=== PATIENT | male | born 1980 | race Caucasian/White ===

== ENCOUNTER 2018-01-07 16:45 | Emergency (ER) | payer OTHER ==
[~2018-01-07] VITALS: Ht 172.7 cm; Wt 70.3 kg
[2018-01-07 16:52] VITALS: Ht 172.7 cm; Wt 70.3 kg
[2018-01-07 18:40] VITALS: BP 124/76
== END 2018-01-07 18:40 | disposition home or self-care (01) ==
LOC: ED 16:45
DX: A54.9 Gonococcal infection, unspecified (principal); F15.10 Other stimulant abuse, uncomplicated
CPT/HCPCS: 87491; 87591; J0696; J1885